=== PATIENT | male | born 1990 | race African-American/Black ===

== ENCOUNTER 2024-02-17 08:42 | Emergency (ER) | payer SELFPAY ==
[2024-02-17 08:46] VITALS: BP 131/73; PULSE 74; RESP 16; TEMP 37.1; O2SAT 100
[2024-02-17 08:52] VITALS: O2SAT 100
--- NOTE | 2024-02-17 10:00 | ED.ALLEREA ---
HPI - Allergic Reaction General Chief complaint: Allergic Reaction Stated complaint: face swelling wasp sting Time Seen by Provider: 02/17/24 09:45 Source: patient Mode of arrival: ambulatory Limitations: no limitations History of Present Illness HPI narrative: Pt is a 33-year-old male who presents to the ER after being stung by a wasp yesterday afternoon around 3pm. He endorses swelling around the L eye that started after the stung and progressively got worse over night. Pt reports no vision changes and endorses mild discomfort of the L eyelid. He reports taking Ibuprofen at home. Pt denies shortness of breath, chest pain, nausea/vomiting, or rashes. Related Data Allergies Allergy/AdvReac Type Severity Reaction Status Date / Time No Known Allergies Allergy Verified 02/17/24 08:46 Review of Systems Review of Systems: All systems reviewed & are unremarkable except as noted in HPI and below Exam Narrative: GENERAL: Well-appearing, well-nourished and in no acute distress. HEENT: Head normocephalic, atraumatic. Eyes pupils equal round and reactive to light, extraocular movements intact. Moderate swelling on pt's L eyelid that does not extend down his cheek or up his forehead. Mild redness noticed on eyelid but no redness or discoloration noted on L eyeball. Oropharynx clear. NECK: Supple, normal range of motion, no JVD. No lymphadenopathy. CARDIAC: Regular rate and rhythm without murmurs, rubs or gallops. RESPIRATORY: Clear to auscultation bilaterally. No wheezes, rales or rhonchi. EXTREMITIES: Normal range of motion, no swelling, clubbing or other deformities. NEUROLOGICAL: Cranial nerves II through XII grossly intact, no focal deficits noted. Normal gait, normal speech. SKIN: Warm, dry, normal color, no rashes, no lesions, swelling to L eyelid. Course Vital Signs Vital signs: Vital Signs Temperature 37.1 C 02/17/24 08:46 Pulse Rate 74 02/17/24 08:46 Respiratory Rate 16 02/17/24 08:46 Blood Pressure 131/73 02/17/24 08:46 Pulse Oximetry 100 02/17/24 08:46 Oxygen Delivery Room Air 02/17/24 08:46 Temperature 37.1 C 02/17/24 08:46 Pulse Rate 67 02/17/24 12:32 Respiratory Rate 18 02/17/24 12:32 Blood Pressure 134/79 02/17/24 12:32 Pulse Oximetry 98 02/17/24 12:32 Oxygen Delivery Room Air 02/17/24 08:52 MDM - Allergic Reaction MDM Narrative Medical decision making narrative: Pt is a 33-year-old male who presents to the ER after being stung by a wasp yesterday afternoon around 3pm. He endorses swelling around the L eye that started after the stung and progressively got worse over night. Pt reports no vision changes and endorses mild discomfort of the L eyelid. He reports taking Ibuprofen at home. Pt denies shortness of breath, chest pain, nausea/vomiting, or rashes. Upon examination, pt's eyes pupils equal round and reactive to light, extraocular movements intact. Moderate swelling on pt's L eyelid that does not extend down his cheek or up his forehead. Mild redness noticed on eyelid but no redness or discoloration noted on L eyeball. Oropharynx clear. After pt was given medication combination of Pepcid, Benadryl, and Solumedrol, his L eye swelling decreased significantly. Pt reports he's feeling better and verbalized agreement with plan to go home. HYPO SPL[employer]ER extensively discussed reasons why pt should return to the ER. Pt provided with a PCP and advised to follow-up for routine care. Differential Diagnosis Differential diagnosis: Likely anaphylaxis, allergic reaction, angioedema and contact dermatitis Discharge Plan Discharge Clinical Impression: Allergic reaction Qualifiers: Encounter type: initial encounter Qualified Code(s): T78.40XA - Allergy, unspecified, initial encounter Patient Disposition: Home, Self-Care Condition: Stable Instructions: Antibiotic Form, Insect Bite or Sting (ED) Additional Instructions: Pt continue to place ice on y
[2024-02-17] MEDS: FAMOTIDINE 20 MG TABLET PO (10:02)
[2024-02-17] MEDS: methylPREDNISolone SOD SUCC 125 MG VIAL IM (10:02)
[2024-02-17] MEDS: diphenhydrAMINE HCl CAP 25 MG CAPSULE 50 MG PO (10:02)
[2024-02-17 12:32] VITALS: BP 134/79; PULSE 67; RESP 18; O2SAT 98
== END 2024-02-17 12:33 | disposition home or self-care (01) ==
PROVIDERS: Emergency Provider Registered Nurse
DX: T78.40XA Allergy, unspecified, initial encounter (principal); R22.0 Localized swelling, mass and lump, head; T63.461A Toxic effect of venom of wasps, accidental (unintentional), initial encounter
CPT/HCPCS: 96372; 99283; A9270; J2919